=== PATIENT | female | born 1990 | race Caucasian/White ===

== ENCOUNTER 2018-10-20 13:39 | Emergency (ER) | payer SELFPAY | END 2018-10-20 14:24 | disposition home or self-care (01) | LOC: JERFT 13:39 ==

== ENCOUNTER 2019-12-14 01:57 | Emergency (ER) | payer OTHER ==
--- NOTE | 2019-12-14 02:15 | PDOC ---
History of Present Illness - General Stated Complaint: ABD PAIN Time Seen by Provider: 12/14/19 02:14 - History of Present Illness Initial Comments: HPI: 12/14/19 02:14 29 yo F no PMH presenting with periumbilical abdominal pain. States that she ate a burger from a restaurant around 1700, developed nausea and two episodes of nbnb vomiting about an hour later. Subsequently woke up around 0100 and noticed that she was having cramping 7/10 periumbilical abdominal pain, prompting her to come to the ER. Did not try anything at home for the pain. No current nausea. ROS: GENERAL/CONSTITUTIONAL: denies fever, chills, diaphoresis, generalized weakness HEAD, EYES, EARS, NOSE AND THROAT: denies rhinorrhea, nasal congestion, throat pain, throat swelling, difficulty swallowing NEUROLOGIC: denies headache, focal weakness, dizziness, unsteady gait, mental status changes CARDIOVASCULAR: denies chest pain, syncope, palpitations, irregular heart rate, lightheadedness, peripheral edema RESPIRATORY: denies cough, shortness of breath, dyspnea with exertion, orthopnea, wheezing, stridor, hemoptysis GASTROINTESTINAL: endorses abdominal pain, nausea, and vomiting. Denies abdominal distension, diarrhea, constipation, melena, hematochezia GENITOURINARY: denies dysuria, frequency, urgency, hesitancy, hematuria, flank pain, genital pain MUSCULOSKELETAL: denies myalgia, arthralgia, joint swelling, back pain, neck pain SKIN: denies rash, itching, pallor HEMATOLOGIC/IMMUNOLOGIC: denies easy bleeding, easy bruising, lymphadenopathy, frequent infections ENDOCRINE: denies unexplained weight gain, unexplained weight loss, heat intolerance, cold intolerance PSYCHIATRIC: denies anxiety, depression, suicidal or homicidal ideation, halluci nations PE: Gen: well-developed, well-nourished, appears uncomfortable Neuro: AAOX4, CN II-XII intact HEENT: atraumatic, normocephalic, dry mucous membranes Neck: trachea midline, supple CV: regular rate, regular rhythm, no murmurs, rubs, or gallops Pulm: CTA b/l, no wheezing Abd: soft, non-distended, mild periumbilical abdominal pain MSK: full ROM, intact pulses Extr: no edema, no deformities Skin: warm, dry MDM: Concern for possible gastritis v food poisoning v pancreatitis. - CBC, CMP - lipase - GI cocktail - reassess 12/14/19 04:24 Labs unconcerning, WBC consistent with vomiting. Reassessed, pain significantly improved. Passed PO trial. Will d/c for further outpatient management. Past History - Medical History Allergies/Adverse Reactions: Allergies Allergy/AdvReac Type Severity Reaction Status Date / Time No Known Allergies Allergy Verified 12/14/19 02:16 COPD: No - Psycho-Social/Smoking History Smoking History: Never smoked ED Treatment Course - LABORATORY CBC & Chemistry Diagram: 12/14/19 02:50 12/14/19 02:50 Discharge - Discharge Information Problems reviewed: Yes Clinical Impression/Diagnosis: Nausea and vomiting Qualifiers: Vomiting type: unspecified Vomiting Intractability: non-intractable Qualified Code(s): R11.2 - Nausea with vomiting, unspecified Abdominal pain Qualifiers: Abdominal location: periumbilical Qualified Code(s): R10.33 - Periumbilical pain Condition: Improved Disposition: HOME - Admission No - Follow up/Referral - Patient Discharge Instructions Patient Printed Discharge Instructions: DI for Abdominal Pain-Adult, DI for Vomiting -- Adult Additional Instructions: You were seen with abdominal pain and previous episodes of vomiting. Your labs did not show any acute abnormalities, and your symptoms improved with medications. Please follow up with your primary care doctor within one week. Return to the ER if you develop new or worsening symptoms. - Post Discharge Activity Work/Back to School Note: Back to Work
[2019-12-14] MEDS ORDERED: ACETAMINOPHEN 1000 MG/100 ML VIAL (NON FORMULARY) IVPB ONE (02:29)
[2019-12-14] MEDS ORDERED: MAG HYDROX/AL HYDROX/SIMETH -MYLANTA- ORAL SUSPENSION PO ONE (02:29)
[2019-12-14 02:33] VITALS: TEMP 98.4
[2019-12-14] MEDS ORDERED: LACTATED RINGERS SOLUTION 1,000 ML/1,000 ML INFUS.BAG IV STA (02:35)
--- OUTSIDE RECORDS SUMMARY | 2019-12-14 02:46 | XMS ---
:1990 Author Organization [facility] Support Name Relationship Address Phone [place] [address] WILMA DWYER BROTHER [address] [place] [phone] Re-disclosure Warning The records that you are about to access may contain information from federally- assisted alcohol or drug abuse programs. If such information is present, then the following federally mandated warning applies: This information has been disclosed to you from records protected by federal confidentiality rules (42 CFR part 2). The federal rules prohibit you from making any further disclosure of this information unless further disclosure is expressly permitted by the written consent of the person to whom it pertains or as otherwise permitted by 42 CFR part 2. A general authorization for the release of medical or other information is NOT sufficient for this purpose. The Federal rules restrict any use of the information to criminally investigate or prosecute any alcohol or drug abuse patient.The records that you are about to access may contain highly sensitive health information, the redisclosure of which is protected by Article 27-F of the [facility] Public Health law. If you continue you may haveaccess to information: Regarding HIV / AIDS; Provided by facilities licensed or operated by the [facility] Office of Mental Health; or Provided by the [facility] Office for People With Developmental Disabilities. If such information is present, then the following [facility] mandated warning applies: This information has been disclosed to you from confidential records which are protected by state law. State law prohibits you from making any further disclosure of this information without the specific written consent of the person to whom it pertains, or as otherwise permitted by law. Any unauthorized further disclosure in violation of state law may result in a fine or long term sentence or both. A general authorization for the release of medical or other information is NOT sufficient authorization for further disclosure. Insurance Providers Payer name Policy type Policy ID Covered Covered republican's Policy P tamara / Coverage republican ID relationship to [employer] type [employer] SELF PAY SP INSURANCE Results ID Date Data Source [id number] 11/12/2019 12:00:00 AM EDT [facility] Name Value Range Interpretation Code Description Data Nina rce(s) Supporting Document(s ) nCoV [facility] RNA XXX VINITA+probe- Imp [facility] reported by [email or web address]. ID Date Data Source [id number] 06/24/2019 12:00:00 AM EDT [facility] Name Value Range Interpretation Code Description Data Nina rce(s) Supporting Document(s ) nCoV [facility] RNA XXX VINITA+probe- Imp [facility] reported by [employer] Procedure
[2019-12-14] MEDS ORDERED: MAG HYDROX/AL HYDROX/SIMETH 30 ML UNIT-DOSE CUP ONE (02:54)
[2019-12-14] MEDS ORDERED: ACETAMINOPHEN INJECTION 100 ML IVPB ONE (02:54)
[2019-12-14] MEDS ORDERED: FAMOTIDINE 20 MG/50 ML IVPB 20 MG/50 ML MG IVPB ONE (03:00)
[2019-12-14 03:04] LABS: BASO % 0.4 % (0-2.0); EOS % 0.6 % (0-4.5); HEMATOCRIT 39.8 % (32.4-45.2); HEMOGLOBIN 13.2 GM/dL (10.7-15.3); LYMPH % 10.1 % (8-40); MCH 26.9 pg (25.7-33.7); MCHC 33.1 g/dl (32.0-36.0); MEAN CELL VOLUME 81.2 fl (80-96); MEAN PLT VOLUME 9.3 fl (7.5-11.1); MONO % 10.9 % (3.8-10.2); PLATELET COUNT 250 K/MM3 (134-434); RBC 4.89 M/mm3 (3.60-5.2); RDW 12.3 % (11.6-15.6); WHITE BLOOD COUNT 13.8 K/mm3 (4.0-10.0)
[2019-12-14 03:28] LABS: ALBUMIN 3.9 g/dl (3.4-5.0); BLOOD UREA NITROGEN 18.7 mg/dL (7-18); CALCIUM 9.2 mg/dL (8.5-10.1); POTASSIUM 4.6 mmol/L (3.5-5.1); TOT PROT 7.6 g/dl (6.4-8.2)
[2019-12-14 03:32] LABS: BILIRUBIN,TOTAL 0.8 mg/dL (0.2-1)
--- NOTE | 2019-12-14 05:09 | PDOC ---
Attending Attestation - Resident Resident Name: Jason Wan - ED Attending Attestation I have performed the following: I have examined & evaluated the patient, The case was reviewed & discussed with the resident, I agree w/resident's findings & plan, Exceptions are as noted - HPI HPI: 12/20/19 19:46 See resident HPI - Physicial Exam PE: 12/20/19 19:47 Agree with documented exam - Medical Decision Making 12/20/19 19:47 Acute gi symptoms after a meal, +n/v and crampy abd px, no longer nauseous gerd, gastritis, food poisoning, less likely pancreatitis, mitchell symptomatic tx re-eval dispo per clinical course, likely dc Discharge - Discharge Information Problems reviewed: Yes Clinical Impression/Diagnosis: Nausea and vomiting Qualifiers: Vomiting type: unspecified Vomiting Intractability: non-intractable Qualified Code(s): R11.2 - Nausea with vomiting, unspecified Abdominal pain Qualifiers: Abdominal location: periumbilical Qualified Code(s): R10.33 - Periumbilical pain Condition: Improved Disposition: HOME - Follow up/Referral - Patient Discharge Instructions Patient Printed Discharge Instructions: DI for Abdominal Pain-Adult, DI for Vomiting -- Adult Additional Instructions: You were seen with abdominal pain and previous episodes of vomiting. Your labs did not show any acute abnormalities, and your symptoms improved with medications. Please follow up with your primary care doctor within one week. Return to the ER if you develop new or worsening symptoms. - Post Discharge Activity Work/Back to School Note: Back to Work
[2019-12-14 05:11] VITALS: BP 113/62; PULSE 85
== END 2019-12-14 05:07 | disposition home or self-care (01) ==
LOC: JER 01:57
PROC: 3E033NZ Introduction of Analgesics, Hypnotics, Sedatives into Peripheral Vein, Percutaneous Approach (ICD-10-PCS; principal; 2019-12-14)
PROC: 3E033GC Introduction of Other Therapeutic Substance into Peripheral Vein, Percutaneous Approach (ICD-10-PCS; 2019-12-14)
PROC: 3E0337Z Introduction of Electrolytic and Water Balance Substance into Peripheral Vein, Percutaneous Approach (ICD-10-PCS; 2019-12-14)
DX: R11.2 Nausea with vomiting, unspecified (principal); R10.33 Periumbilical pain
CPT/HCPCS: 36415; 80053; 83690; 84703; 85025; 99285-25; J0131